=== PATIENT | female | born 1970 | race Caucasian/White ===

== ENCOUNTER → 2020-05-09 | Outpatient (CLI) | payer OTHER ==
[~2020-05-09] MED LIST: AFRIN15 M1; IMITREX100 MG PO; MEDROL4 MG PO; MELOXICAM15 MG PO; NORVASC5 MG PO; OMEPRAZOLE40 MG PO; TOPAMAX50 MG PO; VITAMIN D31000 UNI1 PO; WELLBUTRIN SR150 M1 PO; ZANTAC150 MG PO; ZYRTEC10 MG PO
== END ==
LOC: HEART 5 05-01 09:30
DX: R07.9 Chest pain, unspecified (principal); I08.1 Rheumatic disorders of both mitral and tricuspid valves; R93.1 Abnormal findings on diagnostic imaging of heart and coronary circulation
CPT/HCPCS: 93306

== ENCOUNTER → 2020-07-04 | Outpatient (CLI) | payer OTHER ==
[2020-07-06 15:13] LABS: LIVER-KIDNEY MICROSOMAL AB 2.6 Units (0.0-20.0)
== END ==
LOC: LAB 15:30
PROVIDERS: Internal Medicine Gastroenterology
DX: R74.8 Abnormal levels of other serum enzymes (principal)
CPT/HCPCS: 82784; 83516; 86376

== ENCOUNTER → 2020-07-26 | Outpatient (CLI) | payer OTHER | LOC: MRI 13:03 | DX: M54.5 Low back pain (principal); M54.2 Cervicalgia; M54.6 Pain in thoracic spine; M50.322 Other cervical disc degeneration at C5-C6 level; M50.222 Other cervical disc displacement at C5-C6 level; M48.02 Spinal stenosis, cervical region; M51.34 Other intervertebral disc degeneration, thoracic region; M51.36 Other intervertebral disc degeneration, lumbar region; M51.26 Other intervertebral disc displacement, lumbar region; M47.816 Spondylosis without myelopathy or radiculopathy, lumbar region; V89.2XXA Person injured in unspecified motor-vehicle accident, traffic, initial encounter | CPT/HCPCS: 72141; 72146; 72148 ==

== ENCOUNTER → 2020-11-19 | Outpatient (CLI) | payer OTHER ==
[~2020-11-19] MED LIST changes: +HYDROCODONE-AC1 EAC1 PO; +LOPRESSOR 25 MG25 MG PO; -VITAMIN D31000 UNI1 PO; +VITAMIN D350 MCG PO
[2020-11-19 15:14] LABS: HEMOGLOBIN 14.8 gm/dl (12.3-15.3); RED BLOOD COUNT 4.74 M/UL (4.00-5.10); WHITE BLOOD COUNT 8.8 K/UL (4.5-11.0)
[2020-11-19 15:40] LABS: BUN/CREATININE RATIO 13 (0-10)
[2020-11-20 04:12] LABS: THYROXINE (T4) 8.9 ug/dL (4.5-12.0)
[2020-11-21 11:15] LABS: CREATININE, URINE 111.9 mg/dL (Not Estab.)
== END ==
LOC: LAB 13:01
PROVIDERS: Nurse Practitioner Family
DX: Z13.1 Encounter for screening for diabetes mellitus (principal); Z13.220 Encounter for screening for lipoid disorders; R53.82 Chronic fatigue, unspecified; I10 Essential (primary) hypertension
CPT/HCPCS: 36415; 80053; 80061; 81001; 82043; 82570; 83036; 84436; 84443; 84480; 85025

== ENCOUNTER → 2020-12-05 | Outpatient (CLI) | payer OTHER | LOC: RAD 16:02 | DX: Z12.2 Encounter for screening for malignant neoplasm of respiratory organs (principal); F17.200 Nicotine dependence, unspecified, uncomplicated | CPT/HCPCS: 71046 ==

== ENCOUNTER → 2020-12-24 | Outpatient (CLI) | payer OTHER ==
[2020-12-24 10:26] LABS: HEMOGLOBIN 14.5 gm/dl (12.3-15.3); RED BLOOD COUNT 4.65 M/UL (4.00-5.10); WHITE BLOOD COUNT 6.5 K/UL (4.5-11.0)
== END ==
LOC: US 09:27
PROVIDERS: Internal Medicine Gastroenterology
DX: K73.2 Chronic active hepatitis, not elsewhere classified (principal); K75.81 Nonalcoholic steatohepatitis (NASH); Z20.822 Contact with and (suspected) exposure to COVID-19
CPT/HCPCS: 36415; 71045; 76942; 80076; 85027; 85610; J2270; U0002

== ENCOUNTER → 2021-07-04 | Outpatient (CLI) | payer OTHER ==
[2021-07-04 12:07] LABS: HEMOGLOBIN 14.6 gm/dl (12.3-15.3); RED BLOOD COUNT 4.62 M/UL (4.00-5.10); WHITE BLOOD COUNT 6.7 K/UL (4.5-11.0)
[2021-07-04 12:32] LABS: BUN/CREATININE RATIO 15 (0-10)
== END ==
LOC: LAB 11:11
PROVIDERS: Physical Medicine & Rehabilitation
DX: Z13.1 Encounter for screening for diabetes mellitus (principal); E78.5 Hyperlipidemia, unspecified; I10 Essential (primary) hypertension; K76.0 Fatty (change of) liver, not elsewhere classified; G43.009 Migraine without aura, not intractable, without status migrainosus; K21.9 Gastro-esophageal reflux disease without esophagitis; K75.4 Autoimmune hepatitis; R53.83 Other fatigue
CPT/HCPCS: 36415; 80053; 80061; 81001; 83036; 84443; 85025

== ENCOUNTER → 2021-11-11 | Outpatient (CLI) | payer OTHER | LOC: EMI 14:01 | DX: R51.9 Headache, unspecified (principal) | CPT/HCPCS: 70551 ==

== ENCOUNTER → 2022-01-12 | Outpatient (CLI) | payer OTHER ==
[2022-01-12 17:29] LABS: HEMOGLOBIN 14.4 gm/dl (12.3-15.3); RED BLOOD COUNT 4.4 M/UL (4.00-5.10); WHITE BLOOD COUNT 5.5 K/UL (4.5-11.0)
== END ==
LOC: LAB 16:08
PROVIDERS: Internal Medicine Gastroenterology
DX: K75.4 Autoimmune hepatitis (principal)
CPT/HCPCS: 36415; 80076; 85027